=== PATIENT | male | born 1960 | race Caucasian/White ===

== ENCOUNTER 2016-06-16 13:16 | Outpatient (CLI) | payer BC | END 2016-06-16 13:17 | disposition home or self-care (01) | LOC: CONVCARE 13:16 | PROVIDERS: ATTEND Orthopaedic Surgery | DX: Z47.89 Encounter for other orthopedic aftercare (principal); Z98.890 Other specified postprocedural states | CPT/HCPCS: 73030 ==

== ENCOUNTER 2017-02-03 06:47 | Day surgery (SDC) | payer BC ==
[2017-02-03] MEDS ORDERED: LIDOCAINE HCL 1% MPF SOL ONE (07:01)
[2017-02-03] MEDS ORDERED: PROPOFOL 500 MG/50 ML EMU IV ONE (07:01)
[2017-02-03 08:43] VITALS: TEMP 98.4
[2017-02-03 09:01] VITALS: O2SAT 97
[2017-02-03 09:10] VITALS: BP 124/70; PULSE 45; RESP 18
== END 2017-02-03 09:45 | disposition home or self-care (01) ==
LOC: SURG 06:47
PROVIDERS: ATTEND Internal Medicine Gastroenterology
DX: R13.10 Dysphagia, unspecified (principal); K22.2 Esophageal obstruction; K44.9 Diaphragmatic hernia without obstruction or gangrene; K31.9 Disease of stomach and duodenum, unspecified
CPT/HCPCS: 43239; 43249; 99001; J2001; J2704